=== PATIENT | female | born 1980 ===

== ENCOUNTER 2021-06-16 11:01 | Outpatient (CLI) | payer MEDICAID ==
[2021-06-16 11:51] LABS: Basophils # (auto) 0 10 ^3/uL (0-0.2); Basophils % (auto) 0.3 % (0.0-2.0); Eosinophils # (auto) 0.1 10 ^3/uL (0-0.8); Eosinophils % (auto) 0.7 % (0.0-7.0); Lymphocytes # (auto) 1.6 10 ^3/uL (0.4-5.4); Lymphocytes % (auto) 14.2 % (10.0-50.0); Mean Corpuscular Hemoglobin 29.4 pg (28.0-32.0); Mean Corpuscular Hgb Conc. 33.4 g/dL (32.0-36.0); Mean Corpuscular Volume 87.9 fL (80.0-100.0); Monocytes # (auto) 0.7 10 ^3/uL (0-1.3); Monocytes % (auto) 6.1 % (0.0-12.0); Neutrophils % (auto) 78.7 % (37.0-80.0); Red Blood Cells 4.78 10^6/uL (4.0-5.20); Red Cell Distribution Width 14.1 % (11.8-14.3); White Blood Cell 11.5 10^3/uL (4.4-10.8)
[2021-06-16 12:01] LABS: Urine Bacteria FEW /hpf (None Seen); Urine Blood Negative /uL (Negative); Urine Mucus FEW (None Seen); Urine Specific Gravity 1.012 (1.001-1.035); Urine WBC 1 /hpf (0 - 5)
[2021-06-16 12:05] LABS: Amphetamine Screen, Urine NEGATIVE (NEGATIVE); Barbiturate Scree,Urine NEGATIVE (NEGATIVE); Benzodiazephine Screen, Urine NEGATIVE (NEGATIVE); Cannabinoid Screen, Urine NEGATIVE (NEGATIVE); Cocaine Screen, Urine NEGATIVE (NEGATIVE); Opiate Scree,Urine NEGATIVE (NEGATIVE); Phencyclidine Screen, Urine NEGATIVE (NEGATIVE)
[2021-06-16 12:18] LABS: Calcium 8.7 mg/dL (8.5-10.1); Potassium 3.7 mmol/L (3.5-5.1)
[2021-06-16 12:19] LABS: INR 0.95 (0.9-1.15); Partial Thromboplastin Time 27.6 sec (23.6-33.0)
[2021-06-16 12:23] LABS: BUN/Creatinine Ratio 10.5; Bilirubin, Total 0.3 mg/dL (0.2-1.0); Total Protein 7.5 g/dL (6.4-8.2)
[2021-06-16 13:17] LABS: Alcohol, Urine < 3.0 mg/dL (0-10)
[2021-06-17 06:06] LABS: RPR Non Reactive (Non Reactive)
== END 2021-06-16 11:39 | disposition home or self-care (01) ==
LOC: XYW 11:01
PROVIDERS: ATTEND Obstetrics & Gynecology Obstetrics
DX: Z34.93 Encounter for supervision of normal pregnancy, unspecified, third trimester (principal); Z31.430 Encounter of female for testing for genetic disease carrier status for procreative management; Z36.0 Encounter for antenatal screening for chromosomal anomalies; N39.0 Urinary tract infection, site not specified; Z20.822 Contact with and (suspected) exposure to COVID-19; Z3A.39 39 weeks gestation of pregnancy
CPT/HCPCS: 36415; 80053; 80307; 81001; 81002; 85025; 85610; 85730; 86592; 86850; 86900; 86901; C9803; U0003

== ENCOUNTER 2021-06-17 05:07 | Inpatient (IN) | payer MEDICAID ==
[2021-06-17] VITALS (18 sets, daily range): BP systolic 95–118; BP diastolic 42–76
[~2021-06-17] VITALS: Ht 149.9 cm; Wt 65.3 kg
[2021-06-17] MEDS ORDERED: ceFAZolin 1GM/50ML 50 ML IV ONE (05:30)
[2021-06-17] MEDS ORDERED: LACTATED RINGER'S 1,000 ML IV ONE (05:30)
[2021-06-17] MEDS ORDERED: ONDANSETRON HCL 4 MG/2 ML VIAL IV PRN ×2 (07:45→09:45)
[2021-06-17] MEDS ORDERED: GUM (CHEWING) 1 GUM CHEW CHEW ONE (07:45)
[2021-06-17] MEDS ORDERED: LACT. RINGERS/OXYTOCIN 20UNITS 1,000 ML IV ONE (07:45)
[2021-06-17] MEDS ORDERED: MORPHINE SULFATE 4 MG/ML SYR/VIAL IV PRN (07:45)
[2021-06-17] MEDS ORDERED: MORPHINE SULF PF 2 MG/2 ML SYRG ONE (07:56)
[2021-06-17] MEDS ORDERED: MIDAZOLAM HCL 2MG/2ML 2ml VIAL (1mg/ml) ONE (07:57)
[2021-06-17] MEDS ORDERED: TETRACAINE 1% INJ 2 ML VIAL IJ ONE (07:57)
[2021-06-17] MEDS ORDERED: fentaNYL CITRATE 100 MCG/2 ML VL ONE (07:57)
[2021-06-17] MEDS ORDERED: oxyTOCIN 10 UNIT/ML 10ML VIAL ONE (08:17)
[2021-06-17] MEDS ORDERED: NALBUPHINE HCL 10 MG/1ml INJECTION SUBCUT ONE (09:45)
[2021-06-17] MEDS ORDERED: LABETALOL HCL 5 MG/ML 4ML SYRINGE IV PRN (09:45)
[2021-06-17] MEDS ORDERED: DexAMETHasone SOD PHOS 10MG/1ML VIAL INJ IV PRN (09:45)
[2021-06-17] MEDS ORDERED: HYDROmorphone HCL 2 MG/ML VL IV PRN (09:45)
[2021-06-17] MEDS ORDERED: NALOXONE HCL 0.4 MG/ML VIAL IV PRN (09:45)
[2021-06-17] MEDS ORDERED: KETOROLAC TROMETH 30 MG/ML 1ML VIAL IV PRN (09:45)
[2021-06-17] MEDS ORDERED: ePHEDrine SULFATE 50 MG/ML AMP IV PRN (09:45)
[2021-06-17] MEDS ORDERED: diphenhdrAMINE HCL 50 MG/1 ML VL IV PRN (09:45)
[2021-06-17] MEDS ORDERED: MIDAZOLAM HCL 2MG/2ML 2ml VIAL (1mg/ml) IV PRN (09:45)
[2021-06-17] MEDS ORDERED: ACETAMINOPHEN IV 1000 MG/100ML (10MG/ML) IV PRN (10:45)
[2021-06-17] MEDS ORDERED: ceFAZolin 1GM/50ML 50 ML IV SCH (13:00)
[2021-06-17] MEDS: LACTATED RINGER'S 1,000 ML IV SCH (15:57)
[2021-06-17] MEDS: ceFAZolin 1GM/50ML 50 ML IV SCH (15:59)
[2021-06-17 22:09] LABS: Basophils # (auto) 0.1 10 ^3/uL (0-0.2); Basophils % (auto) 0.5 % (0.0-2.0); Eosinophils # (auto) 0.2 10 ^3/uL (0-0.8); Hematocrit 39.1 % (36.0-46.0); Hemoglobin 13.3 g/dL (12.2-16.2); Lymphocytes # (auto) 1.6 10 ^3/uL (0.4-5.4); Lymphocytes % (auto) 8.1 % (10.0-50.0); Mean Corpuscular Hemoglobin 29.9 pg (28.0-32.0); Mean Corpuscular Volume 87.9 fL (80.0-100.0); Monocytes # (auto) 1.2 10 ^3/uL (0-1.3); Neutrophils # (auto) 16.3 10 ^3/uL (1.6-8.6); Neutrophils % (auto) 84.4 % (37.0-80.0); Red Blood Cells 4.45 10^6/uL (4.0-5.20); Red Cell Distribution Width 13.9 % (11.8-14.3); White Blood Cell 19.3 10^3/uL (4.4-10.8)
[2021-06-18] VITALS (10 sets, daily range): BP systolic 96–136; BP diastolic 61–85
[2021-06-18] MEDS: ceFAZolin 1GM/50ML 50 ML IV SCH ×3 (00:43→21:45)
[2021-06-18] MEDS: LACTATED RINGER'S 1,000 ML IV SCH ×2 (02:38→20:28)
[2021-06-18 09:15] LABS: Basophils # (auto) 0 10 ^3/uL (0-0.2); Basophils % (auto) 0.2 % (0.0-2.0); Eosinophils # (auto) 0 10 ^3/uL (0-0.8); Eosinophils % (auto) 0.1 % (0.0-7.0); Hematocrit 39.9 % (36.0-46.0); Hemoglobin 13.5 g/dL (12.2-16.2); Lymphocytes # (auto) 0.7 10 ^3/uL (0.4-5.4); Lymphocytes % (auto) 5.5 % (10.0-50.0); Mean Corpuscular Hemoglobin 29.7 pg (28.0-32.0); Mean Corpuscular Volume 87.3 fL (80.0-100.0); Monocytes # (auto) 0.8 10 ^3/uL (0-1.3); Monocytes % (auto) 5.9 % (0.0-12.0); Neutrophils # (auto) 11.6 10 ^3/uL (1.6-8.6); Neutrophils % (auto) 88.3 % (37.0-80.0); Red Blood Cells 4.57 10^6/uL (4.0-5.20); Red Cell Distribution Width 13.9 % (11.8-14.3); White Blood Cell 13.2 10^3/uL (4.4-10.8)
[2021-06-18] MEDS ORDERED: BISACODYL 10 MG RECT SUPP PR PRN (12:00)
[2021-06-18] MEDS ORDERED: HYDROcodone-ACET 5/325MG TAB PO PRN (12:00)
[2021-06-18] MEDS: HYDROcodone-ACET 5/325MG TAB PO PRN (12:29)
[2021-06-18] MEDS ORDERED: IBUP800T27 PO (13:17)
[2021-06-18] MEDS ORDERED: DOCU-94 PO (13:17)
[2021-06-18] MEDS ORDERED: HYDR-4902 PO (13:17)
[2021-06-18] MEDS ORDERED: ACETAMINOPHEN 325 MG TAB PO ONE (20:30)
[2021-06-18] MEDS: SIMETHICONE 80 MG CHEWABLE TABLET PO SCH (22:00)
[2021-06-19 03:00] VITALS: BP 117/69
[2021-06-19] MEDS: ceFAZolin 1GM/50ML 50 ML IV SCH ×2 (05:28→15:32)
[2021-06-19 06:50] VITALS: BP 122/82
[2021-06-19 07:45] LABS: Basophils # (auto) 0 10 ^3/uL (0-0.2); Basophils % (auto) 0.2 % (0.0-2.0); Eosinophils # (auto) 0 10 ^3/uL (0-0.8); Eosinophils % (auto) 0.5 % (0.0-7.0); Hematocrit 35.6 % (36.0-46.0); Hemoglobin 11.8 g/dL (12.2-16.2); Lymphocytes % (auto) 9.9 % (10.0-50.0); Mean Corpuscular Hemoglobin 29.3 pg (28.0-32.0); Mean Corpuscular Hgb Conc. 33.2 g/dL (32.0-36.0); Mean Corpuscular Volume 88.4 fL (80.0-100.0); Monocytes % (auto) 10.7 % (0.0-12.0); Neutrophils # (auto) 7.6 10 ^3/uL (1.6-8.6); Neutrophils % (auto) 78.7 % (37.0-80.0); Nucleated Red Blood Cells % 0.1 %; Red Blood Cells 4.03 10^6/uL (4.0-5.20); Red Cell Distribution Width 14.6 % (11.8-14.3); White Blood Cell 9.6 10^3/uL (4.4-10.8)
[2021-06-19] MEDS ORDERED: DOCUSATE CALCIUM 240 MG CAP PO SCH (10:00)
[2021-06-19 11:00] VITALS: BP 115/79
[2021-06-19] MEDS: SIMETHICONE 80 MG CHEWABLE TABLET PO SCH ×3 (11:09→22:00)
[2021-06-19] MEDS: IBUPROFEN 800 MG TAB PO PRN ×2 (11:10→19:11)
[2021-06-19] MEDS: HYDROcodone-ACET 5/325MG TAB PO PRN ×2 (11:11→15:33)
[2021-06-19 15:00] VITALS: BP 115/79
[2021-06-19] MEDS: CEPHALEXIN 250 MG CAP PO SCH (19:03)
[2021-06-19 19:30] VITALS: BP 115/67
[2021-06-19 23:00] VITALS: BP 121/68
[2021-06-20 03:00] VITALS: BP 99/67
[2021-06-20] MEDS: SIMETHICONE 80 MG CHEWABLE TABLET PO SCH (05:35)
[2021-06-20] MEDS: CEPHALEXIN 250 MG CAP PO SCH ×2 (05:35)
[2021-06-20 07:30] VITALS: BP 111/73
== END 2021-06-20 11:22 | disposition home or self-care (01) | DRG 540 ==
LOC: LDRP 05:07
PROVIDERS: ADMIT Obstetrics & Gynecology Obstetrics; ATTEND Obstetrics & Gynecology Obstetrics
PROC: 10D00Z1 Extraction of Products of Conception, Low, Open Approach (ICD-10-PCS; principal; 2021-06-17 07:52)
DX: O34.211 Maternal care for low transverse scar from previous cesarean delivery (principal); Z37.0 Single live birth; Z3A.39 39 weeks gestation of pregnancy
CPT/HCPCS: 36415; 59025; 85025; 94762; 96360; 96361; 96365; 96366; G0378; J0131; J0690; J2250; J2405; J2590